=== PATIENT | male | born 1965 | race Two or more races ===

== ENCOUNTER 2017-05-07 11:47 | Day surgery (SDC) | payer OTHER ==
[~2017-05-07] VITALS: Ht 167.6 cm; Wt 79.4 kg
[2017-05-07 12:21] VITALS: Ht 167.6 cm; Wt 79.4 kg
[2017-05-07] MEDS ORDERED: PROPRANOLOL (12:27)
[2017-05-07] MEDS ORDERED: ASPIRIN (12:27)
[2017-05-07 12:49] VITALS: BP 125/71; PULSE 86; RESP 15
--- NOTE | 2017-05-07 13:45 | OPPN ---
Date/Time of Note Date/Time of Note DATE: 05/07/17 TIME: 13:44 Operative Report Preoperative Diagnosis Abdominal pain Chronic heartburn Screening Postoperative Diagnosis Hiatal hernia Gastroesophageal reflux disease Gastritis with erosions 2 transverse colon polyps were removed Internal hemorrhoids Operation/Procedure Performed Esophagogastroduodenoscopy and biopsy Colonoscopy biopsy and polypectomy Surgeon see signature line marketing administrative assistant None Anesthesia: moderate sedation Estimated blood loss: none Transfusion Required none Specimen Gastric mucosal biopsy Conscious colon polyps Grafts/Implants none Complications none ADRIANO LOOMIS MD May 07, 2017 13:45
[2017-05-07] MEDS ORDERED: FENTAnyl 50 MCG/ML VIAL ONE (14:11)
[2017-05-07] MEDS ORDERED: MIDAZOLAM 1 MG/ML 2 ML INJ ONE ×3 (14:11)
--- NOTE | 2017-05-07 14:38 | GILP ---
DATE OF PROCEDURE: 05/07/2017 PROCEDURE PERFORMED: 1. Esophagogastroduodenoscopy and biopsy. 2. Colonoscopy, biopsy and polypectomy. SURGEON: Bianka Michaels MD. PREOPERATIVE DIAGNOSIS: 1. Abdominal pain. 2. Screening colonoscopy. POSTOPERATIVE DIAGNOSES: 1. Hiatal hernia. 2. Gastroesophageal reflux disease. 3. Gastritis with erosions. 4. Gastric mucosal biopsies were taken for Helicobacter pylori test. 5. Colonoscopy all the way to the cecum. 6. 2 transverse colon polyps were removed using the biopsy forceps as well as snare and electrocautery. 7. Internal hemorrhoids. INDICATION: Mr. Jax Escobar is a 51-year-old male patient who had upper abdominal pain, not responding to therapy. The patient also needed a screening colonoscopy. The procedures and possible complications were well explained to the patient. The patient understood and consented to the procedures. DESCRIPTION OF PROCEDURE: Under the influence of fentanyl and Versed, the gastroscope was carefully introduced into the esophagus. Under direct vision, it was advanced to the stomach, into the pylorus, into the duodenal bulb, and descending duodenum. FINDINGS: Esophagus, the patient had hiatal hernia and gastroesophageal reflux disease. Stomach, he had gastritis with erosions. Gastric mucosal biopsies were taken for Helicobacter pylori test. Duodenum was normal. DESCRIPTION OF PROCEDURE: The colonoscope was carefully introduced in the rectum. Under direct vision, it was advanced all the way to the cecum. FINDINGS: The patient had 2 transverse colon polyps and one of them was removed using biopsy forceps and the other one with the snare and electrocautery. He was noted to have internal hemorrhoids. He tolerated the procedures very well. There were no complication from the procedures. At the end of procedures he was awake with stable vital signs and he was discharged home in the care of his family. IMPRESSION: Please see postoperative diagnoses. PLAN: 1. Omeprazole 40 mg p.o. q.a.m. 2. Await histopathology reports. 3. Next screening colonoscopy in 5 years. Dictated By: MD RONAL Friedman/lynda/nicole /Document#: [id number]
== END 2017-05-07 15:29 | disposition home or self-care (01) ==
LOC: GIL 11:47
PROVIDERS: ATTEND Internal Medicine Gastroenterology
DX: Z12.11 Encounter for screening for malignant neoplasm of colon (principal); D12.3 Benign neoplasm of transverse colon; K64.8 Other hemorrhoids; K29.70 Gastritis, unspecified, without bleeding; K21.9 Gastro-esophageal reflux disease without esophagitis; K44.9 Diaphragmatic hernia without obstruction or gangrene
CPT/HCPCS: 43239; 45380; 87081; 88305; J2250; J3010; Z7610